=== PATIENT | female | born 1960 | race Caucasian/White ===

== ENCOUNTER 2020-11-25 08:23 | Outpatient (CLI) | payer BC, SELFPAY ==
[2020-11-25 08:49] LABS: Abs Immature Grans 0.04 10^3/uL (0.0-0.06); Absolute Basophil Count 0.03 10^3/uL (0.0-0.2); Absolute Eosinophil Count 0.03 10^3/uL (0.0-0.7); Absolute Lymphocyte Count 1.54 10^3/uL (1.2-3.4); Absolute Monocyte Count 0.35 10^3/uL (0.1-0.8); Absolute Neutrophil Count 3.24 10^3/uL (1.2-6.7); Basophils % 0.6; Eosinophils % 0.6; HCT 41.2 % (36.0-46.0); HGB 13.9 g/dL (11.2-15.7); Immature Grans % 0.8; Lymphocytes % 29.4; MCH 30.2 pg (27.0-33.0); MCHC 33.7 % (32.0-36.0); MCV 89.4 fL (80-95); MPV 10.6 fL (8.0-11.0); Monocytes % 6.7; Neutrophils % 61.9; Nucleated RBC 0 %; Platelet Count 204 10^3/uL (130-400); RBC 4.61 10^6/uL (3.93-5.22); RDW 12.5 % (11.7-14.6); RDW-SD 39.1 fL; WBC 5.23 10^3/uL (4.4-10.8)
[2020-11-25 09:04] LABS: ALT 20 U/L (14-59); AST 16 U/L (15-37); Albumin 3.7 g/dL (3.4-5.0); Alkaline Phosphatase 85 U/L (46-116); Anion Gap 6.9 mmol/L (3-11); BUN 13 mg/dL (7-18); Bilirubin, Total 0.2 mg/dL (0.2-1.0); CO2 31.1 mmol/L (21.0-32.0); CREATININE 0.8 mg/dL (0.55-1.02); Calcium 9.5 mg/dL (8.5-10.1); Chloride 103 mmol/L (98-107); Glucose 108 mg/dL (74-106); Magnesium 2.3 mg/dL (1.8-2.4); Potassium 4.5 mmol/L (3.5-5.1); Sodium 141 mmol/L (136-145); Total Protein 7.7 g/dL (6.4-8.2)
== END 2020-11-25 08:24 | disposition home or self-care (01) ==
LOC: LBO 08:27
PROVIDERS: PCP Registered Nurse; Visit Provider Internal Medicine Medical Oncology
DX: C34.12 Malignant neoplasm of upper lobe, left bronchus or lung (principal)
CPT/HCPCS: 36415; 80053; 83735; 85025

== ENCOUNTER 2020-12-16 08:32 | Outpatient (CLI) | payer BC, SELFPAY ==
[2020-12-16 09:03] LABS: Abs Immature Grans 0.04 10^3/uL (0.0-0.06); Absolute Basophil Count 0.04 10^3/uL (0.0-0.2); Absolute Eosinophil Count 0.04 10^3/uL (0.0-0.7); Absolute Monocyte Count 0.27 10^3/uL (0.1-0.8); Absolute Neutrophil Count 1.49 10^3/uL (1.2-6.7); Basophils % 1.6; Eosinophils % 1.6; HCT 35.6 % (36.0-46.0); HGB 11.9 g/dL (11.2-15.7); Immature Grans % 1.6; Lymphocytes % 24.2; MCH 30.1 pg (27.0-33.0); MCHC 33.4 % (32.0-36.0); MCV 90.1 fL (80-95); MPV 11.1 fL (8.0-11.0); Monocytes % 10.9; Neutrophils % 60.1; Nucleated RBC 0 %; Platelet Count 129 10^3/uL (130-400); RBC 3.95 10^6/uL (3.93-5.22); RDW 13.2 % (11.7-14.6); RDW-SD 39.6 fL; WBC 2.48 10^3/uL (4.4-10.8)
[2020-12-16 09:21] LABS: ALT 24 U/L (14-59); AST 24 U/L (15-37); Albumin 3.5 g/dL (3.4-5.0); Alkaline Phosphatase 74 U/L (46-116); Anion Gap 9.1 mmol/L (3-11); BUN 8 mg/dL (7-18); Bilirubin, Total 0.3 mg/dL (0.2-1.0); CO2 27.9 mmol/L (21.0-32.0); CREATININE 0.8 mg/dL (0.55-1.02); Calcium 9.2 mg/dL (8.5-10.1); Chloride 104 mmol/L (98-107); Glucose 101 mg/dL (74-106); Magnesium 2.2 mg/dL (1.8-2.4); Sodium 141 mmol/L (136-145); Total Protein 7.3 g/dL (6.4-8.2)
== END 2020-12-16 08:33 | disposition home or self-care (01) ==
LOC: LBO 08:33
PROVIDERS: PCP Registered Nurse; Visit Provider Internal Medicine Medical Oncology
DX: C34.12 Malignant neoplasm of upper lobe, left bronchus or lung (principal)
CPT/HCPCS: 36415; 80053; 83735; 85025

== ENCOUNTER 2020-12-23 02:23 | Outpatient (CLI) | payer BC, SELFPAY ==
[2020-12-23 08:23] LABS: Abs Immature Grans 0.02 10^3/uL (0.0-0.06); Absolute Basophil Count 0.06 10^3/uL (0.0-0.2); Absolute Eosinophil Count 0.02 10^3/uL (0.0-0.7); Absolute Lymphocyte Count 0.66 10^3/uL (1.2-3.4); Absolute Monocyte Count 0.34 10^3/uL (0.1-0.8); Absolute Neutrophil Count 3.98 10^3/uL (1.2-6.7); Basophils % 1.2; Eosinophils % 0.4; HCT 37.2 % (36.0-46.0); HGB 12.6 g/dL (11.2-15.7); Immature Grans % 0.4; MCH 30.4 pg (27.0-33.0); MCHC 33.9 % (32.0-36.0); MCV 89.6 fL (80-95); MPV 10.8 fL (8.0-11.0); Monocytes % 6.7; Neutrophils % 78.3; Nucleated RBC 0 %; Platelet Count 191 10^3/uL (130-400); RBC 4.15 10^6/uL (3.93-5.22); RDW 14.6 % (11.7-14.6); RDW-SD 45.2 fL; WBC 5.08 10^3/uL (4.4-10.8)
[2020-12-23 08:31] LABS: ALT 23 U/L (14-59); AST 19 U/L (15-37); Albumin 3.5 g/dL (3.4-5.0); Alkaline Phosphatase 71 U/L (46-116); Anion Gap 9.8 mmol/L (3-11); BUN 10 mg/dL (7-18); Bilirubin, Total 0.4 mg/dL (0.2-1.0); CO2 27.2 mmol/L (21.0-32.0); CREATININE 0.9 mg/dL (0.55-1.02); Calcium 9.1 mg/dL (8.5-10.1); Chloride 104 mmol/L (98-107); Glucose 105 mg/dL (74-106); Magnesium 2.2 mg/dL (1.8-2.4); Sodium 141 mmol/L (136-145); Total Protein 7.3 g/dL (6.4-8.2)
== END 2020-12-23 02:24 | disposition home or self-care (01) ==
LOC: LBO 02:23
PROVIDERS: PCP Registered Nurse; Visit Provider Internal Medicine Medical Oncology
DX: C34.12 Malignant neoplasm of upper lobe, left bronchus or lung (principal)
CPT/HCPCS: 36415; 80053; 83735; 85025

== ENCOUNTER 2021-01-13 03:02 | Outpatient (CLI) | payer BC, SELFPAY ==
[2021-01-13 08:03] LABS: Abs Immature Grans 0.02 10^3/uL (0.0-0.06); Absolute Basophil Count 0.03 10^3/uL (0.0-0.2); Absolute Eosinophil Count 0.04 10^3/uL (0.0-0.7); Absolute Monocyte Count 0.29 10^3/uL (0.1-0.8); Absolute Neutrophil Count 1.65 10^3/uL (1.2-6.7); Basophils % 1.1; Eosinophils % 1.5; HCT 32.7 % (36.0-46.0); Immature Grans % 0.8; Lymphocytes % 22.8; MCH 31.9 pg (27.0-33.0); MCHC 33.6 % (32.0-36.0); MCV 94.8 fL (80-95); MPV 10.4 fL (8.0-11.0); Neutrophils % 62.8; Nucleated RBC 0 %; Platelet Count 165 10^3/uL (130-400); RBC 3.45 10^6/uL (3.93-5.22); RDW 16.9 % (11.7-14.6); RDW-SD 56.3 fL; WBC 2.63 10^3/uL (4.4-10.8)
[2021-01-13 08:15] LABS: ALT 18 U/L (14-59); AST 18 U/L (15-37); Albumin 3.4 g/dL (3.4-5.0); Alkaline Phosphatase 76 U/L (46-116); Anion Gap 8.5 mmol/L (3-11); BUN 8 mg/dL (7-18); Bilirubin, Total 0.2 mg/dL (0.2-1.0); CO2 27.5 mmol/L (21.0-32.0); CREATININE 0.8 mg/dL (0.55-1.02); Calcium 8.9 mg/dL (8.5-10.1); Chloride 106 mmol/L (98-107); Glucose 106 mg/dL (74-106); Magnesium 2.3 mg/dL (1.8-2.4); Sodium 142 mmol/L (136-145); Total Protein 7.1 g/dL (6.4-8.2)
[2021-01-13 08:18] LABS: Diff Comment Diff Reviewed; RBC Morphology Normal
== END 2021-01-13 03:03 | disposition home or self-care (01) ==
LOC: LBO 03:02
PROVIDERS: PCP Registered Nurse; Visit Provider Internal Medicine Medical Oncology
DX: C34.12 Malignant neoplasm of upper lobe, left bronchus or lung (principal)
CPT/HCPCS: 36415; 80053; 83735; 85025

== ENCOUNTER 2021-04-29 13:01 | Outpatient (CLI) | payer BC, SELFPAY ==
--- NOTE | 2021-04-29 | DI.MRI_ITS ---
Exam(s) MR BRAIN WO/W EXAM: MR BRAIN WO/W CLINICAL HISTORY: BRAIN METASTASES C79.31 LUNG CANCER C34.90 TECHNIQUE: Multiplanar multisequence MRI of the brain was performed. CONTRAST MATERIAL: IV Contrast: 17 ML of Dotarem contrast administered. COMPARISON: CT CT HEAD WO CNTRST from 04/26/[address] HEAD WO CNTRST from 04/26/2021 FINDINGS: VENTRICLES AND EXTRA AXIAL SPACES: Normal in size and morphology for the patient's age. HEMORRHAGE: Please see below. CEREBRAL PARENCHYMA: No focus of restricted diffusion to suggest acute infarct. There are 7 intracran ial enhancing lesions present. There is a 0.6 x 0.6 cm ring-enhancing lesion in the inferior aspect of the left temporal lobe. There is a 1.2 x 0.7 cm enhancing lesion at the junction of the right par ietal occipital lobes. This shows associated vasogenic edema. There is a 1.4 by 1.3 cm mass in the left occipital lobe with associated edema. There is a 1.3 x 1.2 cm lesion in the right occipital lob e. There is a 0.8 x 0.7 cm ring [place] lesion adjacent to the atria of the left ventricle. There is a 3 mm ring-enhancing lesion in the left frontal lobe. There is a 2 x 2 cm peripherally enhancing h eterogeneous lesion in the left caudate lobe with associated edema and mild compression of the anteri or horn of the left lateral ventricle. No midline shift is seen. There is evidence of prior hemorrh age in the left caudate and the right occipital lobe lesions. There are several areas of hyperintens e signal seen in the white matter which show no enhancement and likely reflect chronic microvascular ischemic disease. MIDLINE SHIFT: None. BRAINSTEM/CEREBELLUM: Normal. CALVARIUM: Normal. ENHANCEMENT: No suspicious enhancement identified. VISUALIZED PARANASAL SINUSES/MASTOIDS: Clear. [place]: Normal flow void. PITUITARY GLAND: Unremarkable. OTHER FINDINGS: IMPRESSION: Seven intracranial enhancing lesions most consistent with intracranial metastatic disease. DATA REPOSITORY:
[2021-04-29 11:48] LABS: Abs Immature Grans 0.03 10^3/uL (0.0-0.06); Absolute Basophil Count 0.05 10^3/uL (0.0-0.2); Absolute Eosinophil Count 0.04 10^3/uL (0.0-0.7); Absolute Lymphocyte Count 0.91 10^3/uL (1.2-3.4); Absolute Monocyte Count 0.53 10^3/uL (0.1-0.8); Absolute Neutrophil Count 6.38 10^3/uL (1.2-6.7); Basophils % 0.6; Eosinophils % 0.5; HCT 39.7 % (36.0-46.0); Immature Grans % 0.4; Lymphocytes % 11.5; MCH 30.9 pg (27.0-33.0); MCHC 32.7 % (32.0-36.0); MCV 94.3 fL (80-95); MPV 10.9 fL (8.0-11.0); Monocytes % 6.7; Neutrophils % 80.3; Nucleated RBC 0 %; Platelet Count 166 10^3/uL (130-400); RBC 4.21 10^6/uL (3.93-5.22); RDW 11.8 % (11.7-14.6); RDW-SD 40.5 fL; WBC 7.94 10^3/uL (4.4-10.8)
[2021-04-29 12:01] LABS: ALT 17 U/L (14-59); AST 17 U/L (15-37); Albumin 3.6 g/dL (3.4-5.0); Alkaline Phosphatase 82 U/L (46-116); Anion Gap 6.2 mmol/L (3-11); BUN 12 mg/dL (7-18); Bilirubin, Total 0.3 mg/dL (0.2-1.0); CO2 30.8 mmol/L (21.0-32.0); CREATININE 0.9 mg/dL (0.55-1.02); Calcium 9.4 mg/dL (8.5-10.1); Chloride 103 mmol/L (98-107); Glucose 118 mg/dL (74-106); LDH 245 U/L (81-234); Magnesium 2.3 mg/dL (1.8-2.4); Sodium 140 mmol/L (136-145); Total Protein 7.8 g/dL (6.4-8.2)
[2021-04-29] MEDS: Normal Saline Flush 10 ML SYR IVP (12:11)
[2021-04-29] MEDS: Gadoterate meglumine 20 ML VIAL 17 ML IVP (12:12)
== END 2021-04-29 13:21 ==
PROVIDERS: PCP Registered Nurse; Visit Provider Internal Medicine Medical Oncology
DX: C34.90 Malignant neoplasm of unspecified part of unspecified bronchus or lung (principal); C79.31 Secondary malignant neoplasm of brain
CPT/HCPCS: 36415; 70553; 80053; 83615; 83735; 85025

== ENCOUNTER 2021-05-01 02:10 | Outpatient (CLI) | payer BC, SELFPAY ==
--- NOTE | 2021-05-01 | DI.CT_ITS ---
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 COMPARISON: CT CT CHEST W/ CNTRST from 08/30/[address] CHEST W/ CNTRST from 08/30/[address] CHEST/ABD/PEL W from 01/28/[address] CHEST/ABD/PEL W from 01/28/2021 FINDINGS: Tracheobronchial tree: Patent where visualized. Pulmonary parenchyma: No consolidation or dominant measurable mass. Mild centrilobular emphysematous changes are present. There is unchanged scarring in the left upper lobe. No new pulmonary infiltrat es or nodules are seen. The left hilar mass is unchanged compared to the prior examination. Mediastinum and Nidia: No dominant adenopathy or fluid collection. The subcarinal lymph node is unchan ged. Pleura: No effusion or pneumothorax. Heart: The heart is not dilated. No coronary artery calcifications are seen. No significant pericardi al effusion. Aorta: Thoracic aorta non-dilated. Atherosclerosis. Upper abdomen: Stable left adrenal mass. Lymph nodes: No axillary adenopathy. Bones: No suspicious lytic or sclerotic lesions. Soft tissues: Unremarkable. IMPRESSION: No change in appearance of the CT scan of the chest since 01/28/2021. RADIATION DOSE DELIVERED: 661.89mGy.cm Total DLP DATA REPOSITORY: All CT scans at this facility are submitted to the National Radiology Data Registry (NRDR) Dose Index Registry (DIR) with the [employer] (ACR). RADIATION OPTIMIZATION: All CT scans at this facility use at least one of these dose optimization te chniques: automated exposure control; mA and/or kV adjustment per patient size (includes targeted exa ms where dose is matched to clinical indication); or iterative reconstruction.
[2021-05-01] MEDS: Normal Saline - Diluent 50 ML VIAL IV (16:06)
[2021-05-01] MEDS: Omnipaque 350 MG/ML 100 ML BTL IJ (16:07)
[2021-05-01] MEDS: Normal Saline Flush 10 ML SYR IVP (16:08)
--- NOTE | 2021-05-01 16:56 | DI.VRAD_ITS ---
PROCEDURE INFORMATION: Exam: CT Chest With Contrast; Diagnostic Exam date and time: 05/01/2021 3:56 PM Age: 60 years old Clinical indication: Other: Small cell lung CA, c34.90, S/P treatment, surveillance TECHNIQUE: Imaging protocol: Diagnostic computed tomography of the chest with contrast. 3D rendering (Not supervised by radiologist): MIP and/or 3D reconstructed images were created by the technologist. COMPARISON: CT CHEST/ABD/PEL W 01/28/2021 10:04 AM FINDINGS: Lungs: Interval decrease in size of the primary left perihilar mass from 1.9 cm to 1.6 cm best seen on series 2, image 27. Stable scar in the lingula. No new pulmonary nodule. Mild centrilobular emphysema. Posteromedial right upper lobe focus atelectasis. Patchy medial superior left lower lobe and posterior left upper lobe foci of parenchymal airspace opacifications. Query post radiation fibrosis. Pleural spaces: Unremarkable. No pneumothorax. No pleural effusion. Heart: Unremarkable. No cardiomegaly. No pericardial effusion. Aorta: Unremarkable. No aortic aneurysm. Lymph nodes: No new lymphadenopathy. Diaphragm: Small hiatal hernia. Adrenal glands: The left adrenal gland mass has minimally decreased from 2.5 cm to 2.3 cm, best seen on series 2, image 54. Normal right adrenal gland. Bones/joints: No new lytic or blastic osseous lesion. Soft tissues: Unremarkable. IMPRESSION: 1. Interval minimal decrease in size of the residual left hilar mass. 2. Interval decrease in the left adrenal metastasis. 3. No new lymphadenopathy or metastatic disease. 4. Patchy airspace opacities in the left upper lobe and the left lower lobe, query post radiation fibrosis. Dictated and Authenticated by: Whit Engle MD. Ordering:HIPOLITO Henley MD
== END 2021-05-01 02:30 ==
PROVIDERS: PCP Registered Nurse; Visit Provider Internal Medicine Medical Oncology
DX: C34.90 Malignant neoplasm of unspecified part of unspecified bronchus or lung (principal); R91.8 Other nonspecific abnormal finding of lung field
CPT/HCPCS: 71260; J3490

== ENCOUNTER 2021-06-02 02:55 | Outpatient (CLI) | payer BC, SELFPAY ==
[2021-06-02 10:17] LABS: Abs Immature Grans 0.02 10^3/uL (0.0-0.06); Absolute Monocyte Count 0.12 10^3/uL (0.1-0.8); HGB 12.6 g/dL (11.2-15.7); MCH 30.4 pg (27.0-33.0); MCHC 33.2 % (32.0-36.0); MCV 91.8 fL (80-95); Nucleated RBC 0 %; RBC 4.14 10^6/uL (3.93-5.22); RDW 12.7 % (11.7-14.6); RDW-SD 42.5 fL; WBC 2.38 10^3/uL (4.4-10.8)
[2021-06-02 10:28] LABS: ALT 26 U/L (14-59); AST 18 U/L (15-37); Alkaline Phosphatase 83 U/L (46-116); BUN 14 mg/dL (7-18); Bilirubin, Total 0.5 mg/dL (0.2-1.0); CREATININE 0.8 mg/dL (0.55-1.02); Calcium 8.9 mg/dL (8.5-10.1); Chloride 103 mmol/L (98-107); Glucose 264 mg/dL (74-106); Potassium 4.1 mmol/L (3.5-5.1); Sodium 139 mmol/L (136-145); Total Protein 6.7 g/dL (6.4-8.2)
[2021-06-02 10:33] LABS: Absolute Lymphocyte Count 0.38 10^3/uL (1.2-3.4); Absolute Neutrophil Count 1.88 10^3/uL (1.2-6.7); Atypical Lymphocytes % 4; Diff Comment Manual Differential; Platelet Count 66 10^3/uL (130-400); RBC Morphology Normal
== END 2021-06-02 02:56 | disposition home or self-care (01) ==
LOC: LBO 02:55
PROVIDERS: PCP Registered Nurse; Visit Provider Internal Medicine Medical Oncology
DX: C34.90 Malignant neoplasm of unspecified part of unspecified bronchus or lung (principal)
CPT/HCPCS: 36415; 80053; 83735; 85025

== ENCOUNTER 2021-06-17 08:37 | Outpatient (CLI) | payer BC, SELFPAY ==
--- NOTE | 2021-06-17 | DI.MRI_ITS ---
Exam(s) MR BRAIN WO/W EXAM: MR BRAIN WO/W CLINICAL HISTORY: LUNG CA,C34.90,BRAIN METS,C79.31,S/P RT,ASSESS TREATMENT RESPONSE,COMPARE. TECHNIQUE: Multiplanar multisequence MRI of the brain was performed. CONTRAST MATERIAL: IV Contrast: 17 ML of Dotarem contrast administered. COMPARISON: MR MR BRAIN WO/W from 04/29/2021 FINDINGS: VENTRICLES AND EXTRA AXIAL SPACES: Normal in size and morphology for the patient's age. HEMORRHAGE: None. CEREBRAL PARENCHYMA: Marked interval improvement with significant reduction in size of previously not ed metastatic lesions. The previously noted lesions in the left temporal lobe are now barely percept ible. A tiny residual focus is of enhancement is noted at the left temporal mass. A 6 millimeter fo cus of enhancement is seen at the right occipital lesion. There is minimal surrounding edema, signi ficantly improved. The right parietal lesion shows significant decrease in size, now with a 5 millim eter nidus of enhancement without significant edema. Previously noted mass in the left basal ganglia now measures 8 x 4 millimeters and shows mild peripheral enhancement. The left parietal lesion sulma cent to the left lateral ventricle shows a minimal focus of enhancement.. Frontal lesion is no longe r seen. On FLAIR images there are scattered nonenhancing small foci consistent with microvascular ch anges. These appear stable. MIDLINE SHIFT: None. BRAINSTEM/CEREBELLUM: Normal. VISUALIZED PARANASAL SINUSES/MASTOIDS: Clear. IMPRESSION: Significant interval improvement with marked reduction in size of metastatic lesions. No new abnorma lities are seen. DATA REPOSITORY:
[2021-06-17] MEDS: Gadoterate meglumine 20 ML VIAL 17 ML IVP (15:04)
[2021-06-17] MEDS: Normal Saline Flush 10 ML SYR IVP (15:04)
== END 2021-06-17 08:57 ==
PROVIDERS: PCP Registered Nurse; Visit Provider Radiology Radiation Oncology
DX: C34.12 Malignant neoplasm of upper lobe, left bronchus or lung (principal); C79.31 Secondary malignant neoplasm of brain; Z92.3 Personal history of irradiation
CPT/HCPCS: 70553

== ENCOUNTER 2021-09-08 01:27 | Outpatient (CLI) | payer BC, SELFPAY ==
--- NOTE | 2021-09-08 | DI.MRI_ITS ---
Exam(s) MR BRAIN WO/W EXAM: MR BRAIN WO/W CLINICAL HISTORY: BRAIN METS FROM LUNG CA,S/P RADIATION,ASSESS DISEASE PROGRESSION TECHNIQUE: Multiplanar multisequence MRI of the brain was performed. Both noninfused and contrast i nfused sequences were performed. IV Contrast injected was cc Dotarem. COMPARISON: MR MR BRAIN WO/W from 06/17/2021 FINDINGS: CEREBRAL PARENCHYMA: There has been some deterioration. There are no new lesions evident in the cere bellar hemispheres. No new findings in the ileana and midbrain and thalami. In the inferior aspect of the right temporal lobe (just above the tentorium) there is a ring-enhancin g round lesion measuring 1.2 cm by 1.1 cm more prominent than on the study of 06/17/2021. Mild surro unding white matter edema at this level is also more so than previous. There also is a ring-enhancing lesion in the left side of the brain immediately behind the atrium of the left lateral ventricle, not previously present and exhibiting some surrounding edema. This measu res 1.3 x 1.0 cm. A ring-enhancing lesion in the left caudate nucleus immediately adjacent to the le ft lateral ventricle has slightly increased in size and exhibits some increased edema in the surround ing white matter. This ring-enhancing lesion measures 1.1 x 1.1 cm. There are no other additional r ing-enhancing lesions evident. PITUITARY GLAND: No new findings in the pituitary fossa and cavernous sinuses. FLOW VOIDS: The expected flow void are noted. No evidence of obvious aneurysm nor obvious vascular ma lformation. PARANASAL SINUSES: The visualized paranasal sinuses appear unremarkable. ORBITS: No obvious abnormal findings. IMPRESSION: When compared to the prior MRI scan of 06/17/2021 there are increasing metastatic lesions as describe d above. These also exhibit slight increase in perilesional white matter edema. There is, however, no evidence of sulcal obliteration or shift of midline structures. DATA REPOSITORY:
[2021-09-08 11:13] LABS: Abs Immature Grans 0.08 10^3/uL (0.0-0.06); Absolute Basophil Count 0.02 10^3/uL (0.0-0.2); Absolute Lymphocyte Count 0.66 10^3/uL (1.2-3.4); Absolute Monocyte Count 0.23 10^3/uL (0.1-0.8); Absolute Neutrophil Count 9.79 10^3/uL (1.2-6.7); Basophils % 0.2; HCT 42.5 % (36.0-46.0); HGB 14.4 g/dL (11.2-15.7); Immature Grans % 0.7; Lymphocytes % 6.1; MCH 31.6 pg (27.0-33.0); MCHC 33.9 % (32.0-36.0); MCV 93.2 fL (80-95); MPV 11.3 fL (8.0-11.0); Monocytes % 2.1; Neutrophils % 90.9; Nucleated RBC 0 %; Platelet Count 143 10^3/uL (130-400); RBC 4.56 10^6/uL (3.93-5.22); RDW 11.8 % (11.7-14.6); RDW-SD 40.1 fL; WBC 10.78 10^3/uL (4.4-10.8)
[2021-09-08 11:23] LABS: ALT 15 U/L (14-59); AST 10 U/L (15-37); Albumin 3.6 g/dL (3.4-5.0); Alkaline Phosphatase 77 U/L (46-116); Anion Gap 11.2 mmol/L (3-11); BUN 15 mg/dL (7-18); Bilirubin, Total 0.4 mg/dL (0.2-1.0); CO2 24.8 mmol/L (21.0-32.0); CREATININE 0.8 mg/dL (0.55-1.02); Calcium 9.1 mg/dL (8.5-10.1); Chloride 102 mmol/L (98-107); Glucose 253 mg/dL (74-106); Magnesium 2.2 mg/dL (1.8-2.4); Potassium 3.8 mmol/L (3.5-5.1); Sodium 138 mmol/L (136-145); Total Protein 7.3 g/dL (6.4-8.2)
[2021-09-08] MEDS: Gadoterate meglumine 20 ML VIAL 17 ML IVP (11:31)
[2021-09-08] MEDS: Normal Saline Flush 10 ML SYR IVP (11:31)
== END 2021-09-08 01:47 ==
PROVIDERS: Internal Medicine Medical Oncology; PCP Registered Nurse; Visit Provider Radiology Radiation Oncology
DX: C34.12 Malignant neoplasm of upper lobe, left bronchus or lung (principal); C79.31 Secondary malignant neoplasm of brain; Z92.3 Personal history of irradiation
CPT/HCPCS: 70553; 80053; 83735; 85025

== ENCOUNTER 2021-10-09 00:52 | Outpatient (CLI) | payer BC, SELFPAY ==
--- NOTE | 2021-10-09 | DI.MRI_ITS ---
Exam(s) MR BRAIN WO/W EXAM: MR BRAIN WO/W CLINICAL HISTORY: LUNG CANCER C34.90, BRAIN METS C79.31. TECHNIQUE: Multiplanar multisequence MRI was performed. COMPARISON: MR MR BRAIN WO/W from 09/08/2021 FINDINGS: MR examination of the brain was performed according to the usual protocol with additional post contra st T1 axial and coronal imaging and MP rage imaging. Examination is compared with prior examination of September 08. Previous examination showed multiple intracranial presumed metastatic lesions. These have all increased in size, currently visualized lesions include left anterior temporal lobe, r ight posterior temporal lobe, left occipital lobe, and left caudate nucleus. No new focal lesions id entified. Largest lesion is now the left occipital lesion which measures 18 millimeters in diameter, increased in size from about 13 millimeters in greatest diameter on prior examination. No other significant signal abnormality identified in the brain. No evidence of hemorrhage or infarc t. Orbital and temporal bone structures appear intact. There is normal flow void in the [place] vasculature. IMPRESSION: Interval increase in size of multiple metastatic intracranial lesions as described above. DATA REPOSITORY:
[2021-10-09] MEDS: Normal Saline Flush 10 ML SYR IVP (09:39)
[2021-10-09] MEDS: Gadoterate meglumine 20 ML VIAL 17 ML IVP (09:40)
== END 2021-10-09 01:12 ==
PROVIDERS: PCP Registered Nurse; Visit Provider Radiology Radiation Oncology
DX: C34.90 Malignant neoplasm of unspecified part of unspecified bronchus or lung (principal); C79.31 Secondary malignant neoplasm of brain
CPT/HCPCS: 70553

== ENCOUNTER → 2021-12-19 00:50 | Outpatient (CLI) | payer BC, SELFPAY ==
--- NOTE | 2021-12-19 | DI.MRI_ITS ---
Exam(s) MR BRAIN WO/W EXAM: MR BRAIN WO/W CLINICAL HISTORY: SCL CA, BRAIN/SPINAL CORD CA, C79.31, C79.49 S/P BRAIN RT/[place] SRS TECHNIQUE: Multiplanar multisequence MRI of the brain was performed. CONTRAST MATERIAL: IV Contrast: 18 mL of Dotarem contrast administered. COMPARISON: MR MR BRAIN WO/W from 10/09/2021 FINDINGS: VENTRICLES AND EXTRA AXIAL SPACES: Normal in size and morphology for the patient's age. HEMORRHAGE: None. CEREBRAL PARENCHYMA: No focus of restricted diffusion to suggest acute infarct. There are areas of hy perintense signal in the white matter on the FLAIR and T2 weighted images which may represent small v essel ischemic disease and/or post therapeutic change. There again seen 5 intraparenchymal and oj s. The left basal gangliar lesion now measures 1.3 cm AP x 0.8 cm transverse. This compares to 1.5 cm x 1.0 cm. The left occipital lesion measures 1.7 cm AP x 0.8 cm transverse. This compares to 1.8 x 1.0 cm. The right posterior temporal lesion measures 1.4 x 1 cm. This compares to 1.5 x 1.1 cm. There are 2 lesions in the left anterior temporal lobe. The medial lesion now measures 2.4 cm AP co mpared to 5.7 cm on the prior examination. The more lateral left temporal lesion now measures 3 mm c ompared to 1 mm. No other intraparenchymal lesions are seen. MIDLINE SHIFT: None. BRAINSTEM/CEREBELLUM: Normal. CALVARIUM: Normal. ENHANCEMENT: Please see the above section. All of the intraparenchymal masses show some degree of en hancement. VISUALIZED PARANASAL SINUSES/MASTOIDS: Clear. [place]: Normal flow void. PITUITARY GLAND: Unremarkable. OTHER FINDINGS: IMPRESSION: Interval decrease in size of 4 of the 5 intracranial metastatic lesions. Slight interval increase in size of the small lateral left temporal lesion which now measures 3 mm compared to 1 mm on the prior examination. DATA REPOSITORY:
[2021-12-19] MEDS: Normal Saline Flush 10 ML SYR IVP (10:16)
[2021-12-19] MEDS: Gadoterate meglumine 20 ML VIAL 18 ML IVP (10:17)
== END ==
PROVIDERS: PCP Registered Nurse; Visit Provider Radiology Radiation Oncology
DX: C79.31 Secondary malignant neoplasm of brain (principal); C79.49 Secondary malignant neoplasm of other parts of nervous system; Z92.3 Personal history of irradiation
CPT/HCPCS: 70553

== ENCOUNTER → 2022-04-16 01:30 | Outpatient (CLI) | payer BC, SELFPAY ==
--- NOTE | 2022-04-16 | DI.MRI_ITS ---
Exam(s) MR BRAIN WO/W EXAM: MR BRAIN WO/W CLINICAL HISTORY: BRAIN METS C79.31, LUNG CANCER W/ METS, FU TECHNIQUE: Multiplanar multisequence MRI of the brain was performed. CONTRAST MATERIAL: IV Contrast: 15 mL of Dotarem contrast administered. COMPARISON: MR MR BRAIN WO/W from 12/19/2021 FINDINGS: VENTRICLES AND EXTRA AXIAL SPACES: Normal in size and morphology for the patient's age. HEMORRHAGE: The gradient images show signal dropout in each of the metastatic lesions likely reflecti ng prior hemorrhage. CEREBRAL PARENCHYMA: No focus of restricted diffusion to suggest acute infarct. There has been interv al increase in size of all of the intraparenchymal lesions except the lateral enhancing nodule in the left temporal lobe. This nodule is not visualized on the current examination. The metastasis in th e medial aspect of the anterior left temporal lobe now measures 1.2 transverse by 0.9 AP cm. This co mpares to 2.4 mm AP on the prior examination. The right posterior temporal lesion measures 3.2 AP by 1.9 transverse cm on the current examination. This compares to 1.4 x 1 cm on the prior examination. The left basal gangliar lesion now measures 3.6 cm AP x 3.0 cm transverse. This compares to 1.3 x 0.8 cm on the prior examination. The left occipital lesion measures 2.3 AP by 1.5 transverse cm. Th is compares to 1.7 x 0.8 cm. All of these lesions now show significant vasogenic edema. There is ef facement of the sulci in all of these regions. Particularly the left basal gangliar lesion. This le jignesh causes a 7 mm midline shift to the right with a face mint of the anterior horn of the left later al ventricle. The left occipital lesion effaces the occipital horn of the left lateral ventricle. MIDLINE SHIFT: Please see the above dissection under cerebral parenchyma. BRAINSTEM/CEREBELLUM: Normal. CALVARIUM: Normal. ENHANCEMENT: Multiple enhancing metastases as described under cerebral parenchyma. VISUALIZED PARANASAL SINUSES/MASTOIDS: Clear. [place]: Normal flow void. PITUITARY GLAND: By partially empty sella is again seen. OTHER FINDINGS: IMPRESSION: Interval increase in size of all of the intracranial metastases with significant edema present result ing in sulcal effacement and midline shift. The left basal gangliar lesion and its associated edema results in a 7 mm rightward midline shift. There is effacement of the left lateral ventricle. DATA REPOSITORY:
[2022-04-16] MEDS: Normal Saline Flush 10 ML SYR IVP (13:19)
== END ==
PROVIDERS: PCP Registered Nurse; Visit Provider Radiology Radiation Oncology
DX: C79.31 Secondary malignant neoplasm of brain (principal); C34.90 Malignant neoplasm of unspecified part of unspecified bronchus or lung
CPT/HCPCS: 70553

== ENCOUNTER 2022-06-23 14:51 | Inpatient (IN) | payer BC, SELFPAY ==
[2022-06-23] VITALS (18 sets, daily range): BP systolic 78–122; BP diastolic 38–66; PULSE 57–147; RESP 13–33; TEMP 36.1–36.5; O2SAT 95–98
--- NOTE | 2022-06-23 15:15 | DI.CT_ITS ---
Exam(s) CT HEAD WO EXAM: CT HEAD WO CLINICAL HISTORY: KNOWN METS, MENTAL STATUS CHANGE, CONFUSION. TECHNIQUE: Imaging Protocol: Axial computed tomography images with coronal and sagittal reformatted images were created and reviewed COMPARISON: CT CT HEAD WO CNTRST from 04/26/2021 MR MR BRAIN WO/W from 04/16/2022 FINDINGS: Ventricles and Extra axial spaces: Normal in size and morphology for the patient's age. Hemorrhage: None. Cerebral parenchyma: There again seen multiple intracranial metastases. The largest is in the left f rontal periventricular region. These are best appreciated on the MRI of the brain from 04/16/2022. T here is diffuse prominent vasogenic edema associated with the lesions with a 3 mm left right midline shift. There are areas of high density within the metastatic lesions particularly the right temporal in the left frontal mass. This likely reflects intratumoral hemorrhage. Midline shift: None. Brainstem/Cerebellum: Normal. Calvarium: Normal. Visualized Paranasal sinuses/Mastoids: Clear. Soft Tissues: Unremarkable. IMPRESSION: Findings again consistent with multiple on hemorrhagic intracranial metastases. The most recent exam inations have been MRIs. An MRI may be considered for better overall visualization of the metastases and for better direct comparison. RADIATION DOSE DELIVERED: Total DLP DATA REPOSITORY: All CT scans at this facility are submitted to the National Radiology Data Registry (NRDR) Dose Index Registry (DIR) with the [employer] (ACR). RADIATION OPTIMIZATION: All CT scans at this facility use at least one of these dose optimization te chniques: automated exposure control; mA and/or kV adjustment per patient size (includes targeted exa ms where dose is matched to clinical indication); or iterative reconstruction.
--- NOTE | 2022-06-23 15:22 | W.ED.GENAD ---
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, Palliative care patient, DNI (do not intubate), DNR (do not resuscitate) Primary Care Provider: Lenora Anderson ED Provider: Gopi Wagner Home Meds and New Rx's Prescriptions: No Action levetiracetam [Keppra] 500 mg tablet 500 mg PO BID metformin 500 mg tablet extended release 24 hr 500 mg PO BID aspirin [Sami Chewable Aspirin] 81 mg tablet,chewable 81 mg PO DAILY omeprazole 20 mg capsule,delayed release(DR/EC) 20 mg PO DAILY sennosides [senna] 8.6 mg tablet 8.6 mg PO DAILY PRN Medical Decision Making 61-year-old female with a history of diabetes, hypertension, hyperlipidemia, coronary artery disease. She has history of small cell lung carcinoma status postradiation and chemotherapy with known brain metastases. She was recently admitted to [facility] for mental status changes at the end of April for which she was treated with a approximately 3-week tapering dose of dexamethasone which she has not had for at least 2 weeks per her . She has follow-up MRI scheduled for July 16. During the course of her recent admission there was a question of radiation necrosis versus progression of ALINING INSPECTOR disease. Patient was referred to the ER today by [facility] after her noticed that she was confused in the midday at home. She was taking off her close and attempt to wash them and was unable to answer questions. There is been no headache, no vomiting, no fever. She has not had a fall or injury. Patient referred for CT imaging, screening chest x-ray and blood work. Laboratory analysis notes an unremarkable CBC and chemistries, INR 1.1. Ammonia level and TSH are unremarkable. Chest x-ray without acute cardiopulmonary findings. CT scan of the head shows redemonstration of multiple hemorrhagic intracranial metastases. There is evidence of vasogenic edema. This is similar to previous imaging studies. Patient given dexamethasone. She will require admission for observation, likely repeat MRI. We will ask palliative care to be involved as well. Sign Out No HPI General Mode of arrival: ambulatory. Date/Time Provider Initiated Documentation: 06/23/22 14:51. Limitations to Documentation: no limitations. Information obtained by: patient and family. History of Present Illness 61 year old F presents to the emergency department with the chief complaint of Confusion, recurrent, described as mild and similar to prior episodes, and is localized to the head. Patient reports no radiation. Patient started experiencing this hour(s) and it has been intermittent. No relieving factors improve symptom(s), No exacerbating factors reported . Patient notes denies fever/chills, headaches, loss of appetite and nausea/vomiting. Patient did receive the following treatments prior to arrival, none Related Data Home Medications Medication Instructions Recorded Confirmed aspirin 81 mg chewable tablet 81 mg PO DAILY 06/03/22 06/23/22 (Sami Chewable Low Dose Aspirin) levetiracetam 500 mg tablet 500 mg PO BID 06/03/22 06/23/22 (Keppra) metformin 500 mg tablet,extended 500 mg PO BID 06/03/22 06/23/22 release 24 hr omeprazole 20 mg capsule,delayed 20 mg PO DAILY 06/03/22 06/23/22 release sennosides 8.6 mg tablet (senna) 8.6 mg PO DAILY PRN 06/03/22 06/23/22 Allergies Allergy/AdvReac Type Severity Reaction Status Date / Time ciprofloxacin Allergy Verified 06/23/22 15:06 General Stated Complaint: GenMedical AVINASH: 3 Review of Systems Narrative: 6 systems reviewed and otherwise negative 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 (Acute) Goals of care, counseling/discussion (Acute) Encounter for hospice care discussion (Acute) POLST (Physician Orders for Life-Sustaining Treatment) (Acute) DNI (do not intubate) (Acute) DNR (do not resuscitate) (Acute) Palliative care patient (Acute) Medical History CAD (coronary artery disease) Diabetes HLD (hyperlipidemia) HTN (hypertension) Kidney stones Family History Father , aged 90 after 45 yrs of heart disease Heart disease Mother , age 57 from bile duct cancer terrible Bile duct cancer Son Age: 30 Autism Daughter Transgender assigned male at Social History Smoking/Tobacco Use Status: Former Tobacco Use Tobacco: How many years used: 50 Smoking risk assessment performed?: Yes Alcohol Intake: never Drug use: Never Caregiver/Support person: Yes Household members: spouse Housing: house Number of Children: 2 number of grandchildren: 0 Communication Needs: Corrective Lenses Education Level: college Do you need help understanding health information?: Often current occupation: retired human services provider, DD, chronic mental illness Pets and animals: Yes Pets and animals: cat(s) Do you think of yourself as: straight/heterosexual Current gender identity: female What is your relationship status?: How often do you talk on the phone with friends or family?: twice per week Panel score (0-1 are the most socially isolated patients): 1 What type of physical activity do you participate in: walking Duration: < 15 minutes/day Alyssa/Yarsanism: None Special alyssa needs: No Seatbelt use: always Do you feel safe at home: Yes Do you feel safe in your relationship?: Yes Additional Social history: Sylvia lives with her Kem. They've been since 1983. They had two sons; the younger is now transitioning to female. The older has autism and lives in a community fci; the younger has Asperger's and is not in regular contact with Sylvia and her . Sylvia's [id number] is her DPOA. She attends most medical visits, along with Kem. The young couple who care for their older son also helps them with chores, especially manual labor chores they can't do themselves. Sylvia said that couple is trying to figure out financing to buy their house. Exam Narrative Exam Narrative: GEN: awake, alert, oriented to person and place. Pleasant, well groomed, interactive. HEAD: Normocephalic, atraumatic ENT: Mucous membranes moist, oropharynx unremarkable, External ear exam unremarkable EYES: PERRL, EOMI NECK: Full ROM, no KHALIDA, no menigismus CHEST/RESP: Nontender, clear to auscultation bilateral, no wheeze/rhonchi/rales CARDIOVASCULAR: RRR, no murmur, rub sajan. 2+ Rad pulse bilateral ABDOMEN: Soft, nontender, no mass. +Bowel sounds EXT: Full ROM, no edema, no rash Neuro: Grossly normal neurologic exam, conversant, interactive. Psych: Speech fluent, affect is flat Course Vital Signs Vital signs: Vital Signs Temperature 36.5 C 06/23/22 14:58 Pulse 77 06/23/22 14:58 Respiratory Rate 14 06/23/22 14:58 Blood Pressure 119/65 06/23/22 14:58 Pulse Oximetry 98 06/23/22 14:58 Temperature 36.5 C 06/23/22 14:58 Temperature Source Temporal Artery Scan 06/23/22 14:58 Pulse 77 06/23/22 14:58 Respiratory Rate 14 06/23/22 14:58 Blood Pressure 119/65 06/23/22 14:58 Blood Pressure Position Sitting 06/23/22 14:58 Pulse Oximetry 98 06/23/22 14:58 Oxygen Delivery Method Room Air 06/23/22 14:58 Oxygen Flow Rate 0 06/23/22 14:58
[2022-06-23 15:54] LABS: Abs Immature Grans 0.02 10^3/uL (0.0-0.06); Absolute Basophil Count 0.03 10^3/uL (0.0-0.2); Absolute Eosinophil Count 0.05 10^3/uL (0.0-0.7); Absolute Lymphocyte Count 0.81 10^3/uL (1.2-3.4); Absolute Monocyte Count 0.38 10^3/uL (0.1-0.8); Absolute Neutrophil Count 3.51 10^3/uL (1.2-6.7); Basophils % 0.6; HCT 36.6 % (36.0-46.0); HGB 12.1 g/dL (11.2-15.7); Immature Grans % 0.4; Lymphocytes % 16.9; MCH 30.7 pg (27.0-33.0); MCHC 33.1 % (32.0-36.0); MCV 93 fL (80-95); MPV 10.6 fL (8.0-11.0); Monocytes % 7.9; Neutrophils % 73.2; Platelet Count 179 10^3/uL (130-400); RBC 3.94 10^6/uL (3.93-5.22); RDW 12.8 % (11.7-14.6); RDW-SD 43.7 fL
[2022-06-23 16:05] LABS: INR 1.1 (0.9-1.1); Prothrombin Time 10.8 sec (9.3-11.0)
[2022-06-23 16:08] LABS: PTT Activated 25.3 sec (21.0-27.5)
[2022-06-23] MEDS: Dexamethasone 10 MG/ML VIAL IVP (16:09)
[2022-06-23 16:11] LABS: Ammonia < 10 umol/L (11-32)
--- NOTE | 2022-06-23 16:15 | DI.RAD_ITS ---
Exam(s) XR CHEST 2V PA LATERAL EXAM: XR CHEST 2V PA LATERAL CLINICAL HISTORY: confusion TECHNIQUE: 2D digital imaging was performed of the chest. Three images were obtained. PA and later al views were obtained. COMPARISON: CT CT CHEST W from 05/01/2021 FINDINGS: MEDIASTINUM: Normal. HEART: Normal. PULMONARY VASCULATURE: Normal. LUNGS: There is linear scarring or atelectasis in the left mid lung. No focal consolidating infiltra lc are present. PLEURAL SPACE: No pleural effusion or pneumothorax. BONE:Within normal limits for the patient's age. OTHER FINDINGS:Normal. IMPRESSION: No acute pulmonary findings. DATA REPOSITORY: RADIATION DOSE DELIVERED:
[2022-06-23 16:20] LABS: ALT 12 U/L (14-59); AST 16 U/L (15-37); Albumin 3.5 g/dL (3.4-5.0); Alkaline Phosphatase 77 U/L (46-116); Anion Gap 7.1 mmol/L (3-11); BUN 7 mg/dL (7-18); Bilirubin, Total 0.5 mg/dL (0.2-1.0); CO2 28.9 mmol/L (21.0-32.0); CREATININE 0.6 mg/dL (0.55-1.02); Chloride 103 mmol/L (98-107); Glucose 100 mg/dL (74-106); Magnesium 2.1 mg/dL (1.8-2.4); Potassium 3.8 mmol/L (3.5-5.1); Sodium 139 mmol/L (136-145); TSH (W/Ref FT4) 1.32 uIU/mL (0.36-3.74); Total Protein 6.9 g/dL (6.4-8.2); Troponin I < 50 ng/L (<or=60)
[2022-06-23 16:29] LABS: Bilirubin Negative (Negative); Blood Trace-intact (Negative); Clarity Clear (Clear); Glucose Negative (Negative); Ketones Negative (Negative); Leukocyte Esterase Negative (Negative); Nitrite Negative (Negative); Urobilinogen 0.2 EU/dL (Up TO 0.2); pH 6.5 (5-8)
[2022-06-23 16:38] LABS: ETHANOL BLOOD < 3.0 mg/dL (<10)
[2022-06-23 16:38] LABS: Bacteria Few HPF (Negative); C & S Indicated? Yes; Casts Negative LPF (Negative); Crystals Negative HPF (Negative); Epithelial Cells Few HPF (Negative); Mucus Negative (Negative)
[2022-06-23 17:12] LABS: *AMPHETAMINES SCREEN URINE Negative (Negative); *BARBITURATES SCREEN URINE Negative (Negative); *BENZODIAZEPINES SCREEN URINE Negative (Negative); Cannabinoids THC Negative (Negative); Cocaine Screen,Urine Negative (Negative); METHADONE URINE SCREEN Negative (Negative); OPIATES URINE SCREEN Negative (Negative); Tricyclic Antidepressants Negative (Negative)
--- NOTE | 2022-06-23 17:14 | DI.VRAD_ITS ---
PROCEDURE INFORMATION: Exam: CT Head Without Contrast Exam date and time: 06/23/2022 4:43 PM Age: 61 years old Clinical indication: Other: Known mets, mental status change, confusion TECHNIQUE: Imaging protocol: Computed tomography of the head without contrast. Radiation optimization: All CT scans at this facility use at least one of these dose optimization techniques: automated exposure control; mA and/or kV adjustment per patient size (includes targeted exams where dose is matched to clinical indication); or iterative reconstruction. COMPARISON: MR BRAIN WO/W 04/16/2022 12:55 PM FINDINGS: Brain: Redemonstration of multiple intracranial metastases, largest in the left frontal periventricular region measuring approximately 3 cm, better visualized on prior MRI brain performed on 04/16/2022. Punctate foci of hyperdensity within the metastatic lesions most likely reflects intratumoral hemorrhage, most prominently in the right temporal mass and left frontal periventricular mass. Prominent vasogenic edema adjacent to the lesions. 0.3 cm [id number] midline shift. No extra-axial fluid collection. Dunn-white matter differentiation is preserved. Cerebral ventricles: No ventriculomegaly. Paranasal sinuses: Unremarkable. No fluid levels. Mastoid air cells: Unremarkable. Bones/joints: No acute osseus lesion or fracture. Soft tissues: Unremarkable. IMPRESSION: Redemonstration of multiple hemorrhagic intracranial metastases, overall better visualized on prior MRI from 04/16/2022. If clinical necessity for direct comparison for progression of disease, recommend follow-up MRI brain with and without IV contrast. Follow-up at the discretion of neurosurgery. Dictated and Authenticated by: Andrei Voss MD. Ordering:ARSH Nguyễn MD
--- NOTE | 2022-06-23 17:15 | DI.VRAD_ITS ---
PROCEDURE INFORMATION: Exam: XR Chest Exam date and time: 06/23/2022 4:50 PM Age: 61 years old Clinical indication: Confusion TECHNIQUE: Imaging protocol: Radiologic exam of the chest. Views: 2 views. COMPARISON: CT CHEST W 05/01/2021 3:38 PM FINDINGS: Lungs: Linear scarring in the left upper lobe. No focal areas of consolidation. Pleural spaces: Unremarkable. No pleural effusion. No pneumothorax. Heart/Mediastinum: Cardiac and mediastinal silhouettes are unremarkable. Bones/joints: No acute osseus lesion or fracture. IMPRESSION: No acute cardiopulmonary findings. Dictated and Authenticated by: Andrei Voss MD. Ordering:ARSH Nguyễn MD
--- NOTE | 2022-06-23 17:39 | HPE_ITS ---
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 Cont dexamethasone. MRI planned for 07/16 per oncology. Will obtain while here. (2) Goals of care, counseling/discussion: Status: Acute Assessment and plan: Palliative has been involved. Will consult them for further discussion of goals. (3) CAD (coronary artery disease): Assessment and plan: Pt on an aspirin routinely. Hold at this time. No CP. (4) Diabetes: Assessment and plan: Cont metformin. Add SS correction dosing of insulin. Monitor. Expect blood glucose increases d/t steroid administration. (5) HTN (hypertension): Assessment and plan: Monitor. (6) Confusion: Status: Acute Assessment and plan: Secondary to known metastatic lesions to brain. Ammonia level normal. No evidence of infectious process as etiology. History of Present Illness History of Present Illness Chief Complaint: Acute confusional state Narrative: This is a 61 yo female with known small cell lung cancer with mets to the brain, DM2, HTN, HLD, CAD. She has undergone chemotherapy and radiation therapy. Recently admitted to [facility] for mental status changes/confusion at the end of April. She was treated for 3 weeks with a tapering dose of dexamethasone ( course completed). She does have a f/u MRI scheduled for 07/16. She was referred to the ED by [facility] after her noted her to be confused; taking off her clothes and attempting to wash them in the sink and unable to answer questions. She has not noted to have vomitting, fever. In the ED, lab w/u was unremarkable. CT head redemonstrated the known multiple hemorrhagic intracranial metastases with vasogenic edema. Dexamethasone 10mg IV administered. 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 (Acute) Goals of care, counseling/discussion (Acute) Encounter for hospice care discussion (Acute) POLST (Physician Orders for Life-Sustaining Treatment) (Acute) DNI (do not intubate) (Acute) DNR (do not resuscitate) (Acute) Palliative care patient (Acute) Medical History CAD (coronary artery disease) Diabetes HLD (hyperlipidemia) HTN (hypertension) Kidney stones Family History Father , aged 90 after 45 yrs of heart disease Heart disease Mother , age 57 from bile duct cancer terrible Bile duct cancer Son Age: 30 Autism Daughter Transgender assigned male at Social History Smoking/Tobacco Use Status: Former Tobacco Use Tobacco: How many years used: 50 Smoking risk assessment performed?: Yes Alcohol Intake: never Drug use: Never Caregiver/Support person: Yes Household members: spouse Housing: house Number of Children: 2 number of grandchildren: 0 Communication Needs: Corrective Lenses Education Level: college Do you need help understanding health information?: Often current occupation: retired human services provider, DD, chronic mental illness Pets and animals: Yes Pets and animals: cat(s) Do you think of yourself as: straight/heterosexual Current gender identity: female What is your relationship status?: How often do you talk on the phone with friends or family?: twice per week Panel score (0-1 are the most socially isolated patients): 1 What type of physical activity do you participate in: walking Duration: < 15 minutes/day Alyssa/Roman Catholic: None Special alyssa needs: No Seatbelt use: always Do you feel safe at home: Yes Do you feel safe in your relationship?: Yes Additional Social history: Sylvia lives with her Kem. They've been since 1983. They had two sons; the younger is now transitioning to female. The older has autism and lives in a community usp; the younger has Asperger's and is not in regular contact with Sylvia and her . Sylvia's [id number] is her DPOA. She attends most medical visits, along with Kem. The young couple who care for their older son also helps them with chores, especially manual labor chores they can't do themselves. Sylvia said that couple is trying to figure out financing to buy their house. Meds Allergies and Home Medications Allergies Allergy/AdvReac Type Severity Reaction Status Date / Time ciprofloxacin Allergy Verified 06/23/22 15:06 Home Medications Medication Instructions Recorded Confirmed Type aspirin 81 mg chewable tablet 81 mg PO DAILY 06/03/22 06/23/22 History (Sami Chewable Low Dose Aspirin) levetiracetam 500 mg tablet 500 mg PO BID 06/03/22 06/23/22 History (Keppra) metformin 500 mg tablet,extended 500 mg PO BID 06/03/22 06/23/22 History release 24 hr omeprazole 20 mg capsule,delayed 20 mg PO DAILY 06/03/22 06/23/22 History release sennosides 8.6 mg tablet (senna) 8.6 mg PO DAILY PRN 06/03/22 06/23/22 History Exam Narrative Exam Narrative: Pleasant female sitting on edge of bed. Const General: cooperative and no acute distress Nutritional Appearance: overweight Orientation: alert and oriented to person [facility] Head: normocephalic and atraumatic Ears: hearing grossly normal bilaterally Eyes General: appearance normal, both eyes and all related structures Sclera: sclerae normal Pupils: PERRL EOM: No nystagmus Resp Effort & Inspection: normal respiratory effort Auscultation: clear to auscultation bilaterally Cardio Rate: regular rate Rhythm: regular rhythm Heart Sounds: S1 normal and S2 normal GI Inspection: non-distended Palpation: soft and nontender Neuro General: no focal motor deficits Cranial Nerves: facial strength normal and no nystagmus Cognition: abnormal cognition (poor and slow recall of events) Results Labs Result diagrams: 06/23/22 15:48 06/23/22 15:48 Labs: Laboratory Results - last 24 hr 06/23/22 06/23/22 06/23/22 15:48 15:48 15:48 WBC 4.80 RBC 3.94 Hgb 12.1 Hct 36.6 MCV 93 MCH 30.7 MCHC 33.1 RDW 12.8 Plt Count 179 MPV 10.6 Immature Gran % 0.4 Neutrophils % 73.2 Lymphocytes % 16.9 Monocytes % 7.9 Eosinophils % 1.0 Basophils % 0.6 Nucleated RBC % 0.0 Absolute Neutrophils 3.51 Absolute Lymphocytes 0.81 L Absolute Monocytes 0.38 Absolute Eosinophils 0.05 Absolute Basophils 0.03 PT INR APTT Sodium 139 Potassium 3.8 Chloride 103 Carbon Dioxide 28.9 Anion Gap 7.1 BUN 7 Creatinine 0.6 Est GFR (CKD-EPI 2020) 100.80 Glucose 100 Calcium 9.0 Magnesium 2.1 Total Bilirubin 0.5 AST 16 ALT 12 L Alkaline Phosphatase 77 Ammonia < 10 L Troponin I < 50 Total Protein 6.9 Albumin 3.5 TSH 1.32 Urine Color Urine Clarity Urine pH Ur Specific [place] Urine Protein Urine Ketones Urine Blood Urine Nitrite Urine Bilirubin Urine Urobilinogen Ur Leukocyte Esterase Urine RBC Urine WBC Ur Epithelial Cells Urine Crystals Urine Bacteria Urine Casts Urine Mucus Ur Culture Indicated? Urine Glucose Urine Opiates Screen Urine Methadone Screen Ur Barbiturates Screen Ur Tricyclics Screen Ur Amphetamines Screen U Benzodiazepines Scrn Urine Cocaine Screen Ur THC Screen Ethyl Alcohol < 3.0 06/23/22 06/23/22 06/23/22 15:48 15:48 16:22 WBC RBC Hgb Hct MCV MCH MCHC RDW Plt Count MPV Immature Gran % Neutrophils % Lymphocytes % Monocytes % Eosinophils % Basophils % Nucleated RBC % Absolute Neutrophils Absolute Lymphocytes Absolute Monocytes Absolute Eosinophils Absolute Basophils PT 10.8 INR 1.1 APTT 25.3 Sodium Potassium Chloride Carbon Dioxide Anion Gap BUN Creatinine Est GFR (CKD-EPI 2020) Glucose Calcium Magnesium Total Bilirubin AST ALT Alkaline Phosphatase Ammonia Troponin I Total Protein Albumin TSH Urine Color Urine Clarity Urine pH Ur Specific [place] Urine Protein Urine Ketones Urine Blood Urine Nitrite Urine Bilirubin Urine Urobilinogen Ur Leukocyte Esterase Urine RBC Urine WBC Ur Epithelial Cells Urine Crystals Urine Bacteria Urine Casts Urine Mucus Ur Culture Indicated? Urine Glucose Urine Opiates Screen Negative Urine Methadone Screen Negative Ur Barbiturates Screen Negative Ur Tricyclics Screen Negative Ur Amphetamines Screen Negative U Benzodiazepines Scrn Negative Urine Cocaine Screen Negative Ur THC Screen Negative Ethyl Alcohol 06/23/22 16:22 WBC RBC Hgb Hct MCV MCH MCHC RDW Plt Count MPV Immature Gran % Neutrophils % Lymphocytes % Monocytes % Eosinophils % Basophils % Nucleated RBC % Absolute Neutrophils Absolute Lymphocytes Absolute Monocytes Absolute Eosinophils Absolute Basophils PT INR APTT Sodium Potassium Chloride Carbon Dioxide Anion Gap BUN Creatinine Est GFR (CKD-EPI 2020) Glucose Calcium Magnesium Total Bilirubin AST ALT Alkaline Phosphatase Ammonia Troponin I Total Protein Albumin TSH Urine Color Yellow Urine Clarity Clear Urine pH 6.5 Ur Specific [place] 1.010 Urine Protein Negative Urine Ketones Negative Urine Blood Trace-intact H Urine Nitrite Negative Urine Bilirubin Negative Urine Urobilinogen 0.2 Ur Leukocyte Esterase Negative Urine RBC 3-5 H Urine WBC 5-10 Ur Epithelial Cells Few Urine Crystals Negative Urine Bacteria Few Urine Casts Negative Urine Mucus Negative Ur Culture Indicated? Yes Urine Glucose Negative Urine Opiates Screen Urine Methadone Screen Ur Barbiturates Screen Ur Tricyclics Screen Ur Amphetamines Screen U Benzodiazepines Scrn Urine Cocaine Screen Ur THC Screen Ethyl Alcohol Last Vital Signs Temp 36.5 C 06/23/22 14:58 Pulse 77 06/23/22 14:58 Resp 15 06/23/22 16:28 BP 119/65 06/23/22 14:58 Pulse Ox 98 06/23/22 14:58
[2022-06-23 17:40] LABS: Source Nasal/Nares
[2022-06-23 18:24] LABS: COVID-19 PCR Negative (Negative)
[2022-06-23] MEDS: metFORMIN C.R. 500 MG TABCR PO (20:56)
[2022-06-23] MEDS: levETIRAcetam 500 MG TAB PO (20:57)
[2022-06-24 07:44] VITALS: BP 103/57; PULSE 50; RESP 18; TEMP 36.5; O2SAT 96
--- NOTE | 2022-06-24 08:24 | W.INDIABCONS ---
Date of service: 06/24/22 Time of Service: 08:24 Diabetes Inpatient Consult Reason for Visit: consult for diabetes education and management DESCRIPTION/ASSESSMENT: Ms. Cuevas has metastatic lung cancer with mets to the brain. She is on a regular diet. She takes metformin. Blood glucose has been at target. Of note, Ms. Cuevas has lost 10.6 kg since November of this year. She has lost 11% of her body weight in 6 month which is consistent with significant weight loss. INTERVENTION: Will offer high protein, high calorie liquid nutritional supplements as well as encourage her to eat nutrient dense foods. PLAN: Will monitor weight, PO,blood sugars, and tolerance to supplementation. Diabetes education is not appropriate at this time. Will defer for now. Thank you for the consult. Time Spent in Nutritional Counseling and Treatment: 0
[2022-06-24] MEDS: levETIRAcetam 500 MG TAB PO (10:04)
[2022-06-24] MEDS: metFORMIN C.R. 500 MG TABCR PO (10:07)
[2022-06-24] MEDS: Dexamethasone 4 MG TAB 10 MG PO (10:07)
--- NOTE | 2022-06-24 10:30 | INITIAL_ITS ---
- If Service Date Differs Date of service: 06/24/22 Time of Service: 10:30 Care Management Initial Assess REASON FOR HOSPITALIZATION:: Confusional state, brain metasteses PAST MEDICAL HISTORY/PAST SURGICAL HISTORY:: All Active Problems. Confusion (Acute). Obesity (BMI 30.0-34.9) (Acute). History of tobacco use (Acute). quit fall 2020. uses nicotine replacement. Brain tumor, recurrent (Acute). metastatic from Small Cell Lung cancer. Small cell lung cancer, left upper lobe (Acute). 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 Cancer of brain treated with radiation therapy (Chronic). whole brain irradiated 05/22; stereotopic tx in September 2021 and November 2021. 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 Goals of care, counseling/discussion (Acute). Encounter for hospice care discussion (Acute). POLST (Physician Orders for Life-Sustaining Treatment) (Acute). DNI (do not intubate) (Acute). DNR (do not resuscitate) (Acute). Palliative care patient (Acute). Medical History. CAD (coronary artery disease). Diabetes. HLD (hyperlipidemia). HTN (hypertension). Kidney stones PREVIOUS FUNCTIONAL STATUS/SOCIAL/FAMILY SUPPORTS:: Sylvia lives in [place] with her , Kem, who is her primary support person. They have two sons, one who is disabled and lives in a community fci near them, and another who they are not in much contact with. Sylvia is independent with ADL's at baseline. CURRENT FUNCTIONAL STATUS:: Sylvia was sitting up in her chair when CM met with her. She stated that she has seen the MD, and is waiting for an MRI. She reported feeling much better today, and her , who was visiting, confirmed that she is much less confused today. She stated that she feels that she is still independent, and although she has had HH in the past, she does not feel that she needs it currently. She reported that she is looking forward to returning home today. CM will continue to follow. ADVANCE DIRECTIVES:: AD and COLST on file, Kem listed as agent on both. Has patient been provided with info about the portal/API?: Yes Did the patient sign up for the portal?: Yes (active) CODE STATUS:: DNR/DNI INSURANCE COVERAGE / FINANCIAL ISSUES:: BCBS CURRENT HOME/COMMUNITY SERVICES/EQUIPMENT:: No current services or equipment. PRIMARY CARE PHYSICIAN:: Jose Luis Don POTENTIAL DISCHARGE NEEDS:: Evaluations for further needs, follow up appointments. PATIENT/FAMILY EDUCATION NEEDS:: Review discharge instructions and limitations, discussion of self care needs including ask me three and goals of care. ANTICIPATED BARRIERS TO DISCHARGE:: None identified. TRANSPORTATION:: Via private vehicle by . PLAN:: Anticipate Sylvia will return home once medically cleared. Her will drive her home via private vehicle. She will follow up with her PCP and discharge plan of care. CM will continue to follow.
[2022-06-24] MEDS: Normal Saline Flush 10 ML SYR IVP (11:12)
--- NOTE | 2022-06-24 13:40 | DI.MRI_ITS ---
Exam(s) MR BRAIN WO/W EXAM: MR BRAIN WO/W CLINICAL HISTORY: Known brain mets. Acute confusional state TECHNIQUE: Multiplanar multisequence MRI of the brain was performed. CONTRAST MATERIAL: IV Contrast: 15 mL of Dotarem contrast administered. COMPARISON: MR MR BRAIN WO/W from 04/16/2022 FINDINGS: VENTRICLES AND EXTRA AXIAL SPACES: Normal in size and morphology for the patient's age. HEMORRHAGE: Please see below under cerebral parenchyma. CEREBRAL PARENCHYMA: No focus of restricted diffusion to suggest acute infarct. There again seen mult iple ring-enhancing intracranial metastases. They have all shown some degree of increase in size sin ce 04/16/2022. The lesion adjacent to the anterior horn of the left lateral ventricle measures 3.1 x 3.9 cm. This compares to 2.9 x 3.5 cm on the prior examination. All of these show some evidence of intratumoral hemorrhage. There is associated vasogenic edema present. There has been a slight decre ase in the rightward midline shift which now measures 4 mm compared to 7 on the prior examination. MIDLINE SHIFT: None. BRAINSTEM/CEREBELLUM: Normal. CALVARIUM: Normal. ENHANCEMENT: Please see above under cerebral parenchyma. VISUALIZED PARANASAL SINUSES/MASTOIDS: Clear. [place]: Normal flow void. PITUITARY GLAND: Unremarkable. OTHER FINDINGS: IMPRESSION: 1. Increase in size of all of the intracranial metastases since 04/16/2022. 2. Slight decrease in the rightward midline shift since 04/16. It currently measures 4 mm compared t o 7 on the prior examination. DATA REPOSITORY:
--- NOTE | 2022-06-24 14:21 | W.PALLCONSUL ---
Date of service: 06/24/22 Time of Service: 14:21 History of Present Illness History of Present Illness Chief Complaint: Lung Cancer with Brain mets, acute confusional state Narrative: Mrs. Cuevas is a 61-year-old woman (soon-to-be 62-year-old, birthday in 2 days) with history of small cell lung cancer with brain metastasis. She was admitted to [facility] through the emergency department last night after becoming acutely confused over the previous 12 hours, removing her clothing and not responding to her 's instructions. Dr. Palma from palliative care has been following her as an outpatient over the last year. Palliative care service is asked to see her today in consultation Oncological history as well summarized in oncology notes on file. She is status post whole brain radiation in May 2021. She was admitted to [facility] in mid April with acute worsening of confusion and found to have increasing brain edema and microhemorrhages around multiple brain mets. She was started on steroids and responded well. She was sent home with a 6-week steroid taper. As per , completely tapered off the steroids about 3 weeks ago. He noted some speech difficulty starting 3 or 4 days ago and then became acutely severely confused yesterday morning. He called radiation oncology office at [facility] and they recommended that she be brought to the emergency room. Evaluation with head CT showed persistence of brain metastasis and edema but no profound acute changes (large hemorrhage, herniation). Patient was started back on steroids last night. This morning staff, family and patient herself reports that she is greatly improved and pretty much back to previous baseline. He is reported to be alert and oriented and asking to return home. She underwent MRI of her head with and without contrast today and results are still pending at the time of my note. See previous notes with palliative care. In previous discussions, patient told Dr. Palma that she would want to be admitted to hospice when there was no treatment options left. She also has went through the process for Act [employer], as she would like to have this option available to her. Today she says she feels very frustrated and tired as well as angry. She feels she is being poked and prodded, particularly upset about having to have an IV placed. She and her also expressed frustration that we do not know how much longer I have , and we do not know what is going on until we see the MRI . She also feels burdened by having so many doctors appointments and by continuing to be correct and prodded . When asked who in their community is supporting them, she reports we have no one. The disabled son lives nearby and will be visiting tomorrow for Thanksgiving. Their other child lives out of state and is currently estranged with no plans to visit over the holidays. They cannot identify friends or neighbors that are providing support emotional or otherwise. When asked about goals, she cannot think of any. When asked about what activities she has enjoyed over the preceding month, she has enjoyed cooking and being in her kitchen. She is still able to do this prior to her admission. Palliative performance scale: Today 60, likely 70 last week (can do some hobbies, full self-care, normal intake, level of consciousness full/confusion) Review of systems: Denies pain GI symptoms, pruritus, positive depression, positive fatigue. Persistent visual defect as previously noted. 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 Case discussed by phone with Dr. Cortez, her [facility] radiation oncologist. He agrees with resuming steroids. He would like to meet with her in the office in the next week or 2 to discuss option of treatment with a Avastin, which can reduce need to remain on steroids to palliate symptoms from brain edema due to brain metastasis. This information is shared with the patient. Prognosis: Patient and have questions about prognosis. This has been discussed and documented in previous palliative medicine visits. Patient is now over a year out from initial diagnosis of brain mets and has outlived the most likely prognosis that would have been given at that time. She understands that this is not curable. Hard to predict prognosis but likely a month to a few months. Her performance status prior to becoming acutely confused was actually pretty reasonable. Reviewed her goals, reviewed burden of treatment versus possible gains in function and quality of life from additional treatment. She reiterates that she would like to enroll in hospice when she is no longer interested in pursuing treatment. She understands that Avastin is something that would not be considered a hospice type treatment but that steroids are often given to palliate symptoms, especially on hospice. At this point in her illness, her clinical status is most helpful indicator of how she is doing (i.e. imaging did not add that much at this time, although might be required for avastin therapy). Encouraged her and to go by how she is feeling and what she is able to do. As she is now feeling better after being started back on steroids, I anticipate her having at least a few good weeks and urged them to think about what her goals are and pursue them (she mentions cooking and being in her home relaxing). Today she and her do not feel it is time to transition hospice. She would like to meet with Dr. Cortez, Radiation Oncologist in the next week or so and find out more about the Avastin. If she decides not to elect a Avastin treatments (or is not a candidate) , I think she would benefit from electing hospice status. She feels terribly burdened by having to go to many doctors appointments, tests and blood work. Hospice would offer additional support, especially emotional. She does not think it would be helpful for her to talk with new vehicle sales consultant or counselor. Treatment: -Continue on steroids as planned by hospitalist. Discussed with patient and her that she can (and probably should) remain on steroids for the rest of her life, IF Avastin therapy is not elected. -Continue antiseizure medicine. -Patient with some depression as well as fatigue. We will follow-up on this with her next outpatient palliative visit. She is scheduled to follow-up with [facility] palliative medicine in about 6 weeks. We will call and schedule sooner follow-up with Dr. Palma. We are happy to meet with patient sooner if needed. 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 (Acute) Goals of care, counseling/discussion (Acute) Encounter for hospice care discussion (Acute) POLST (Physician Orders for Life-Sustaining Treatment) (Acute) DNI (do not intubate) (Acute) DNR (do not resuscitate) (Acute) Palliative care patient (Acute) Medical History CAD (coronary artery disease) Diabetes HLD (hyperlipidemia) HTN (hypertension) Kidney stones Family History Father , aged 90 after 45 yrs of heart disease Heart disease Mother , age 57 from bile duct cancer terrible Bile duct cancer Son Age: 30 Autism Daughter Transgender assigned male at Social History Smoking/Tobacco Use Status: Former Tobacco Use Tobacco: How many years used: 50 Smoking risk assessment performed?: Yes Alcohol Intake: never Drug use: Never Caregiver/Support person: Yes Household members: spouse Housing: house Number of Children: 2 number of grandchildren: 0 Communication Needs: Corrective Lenses Education Level: college Do you need help understanding health information?: Often current occupation: retired human services provider, DD, chronic mental illness Pets and animals: Yes Pets and animals: cat(s) Do you think of yourself as: straight/heterosexual Current gender identity: female What is your relationship status?: How often do you talk on the phone with friends or family?: twice per week Panel score (0-1 are the most socially isolated patients): 1 What type of physical activity do you participate in: walking Duration: < 15 minutes/day Alyssa/Mosque: None Special alyssa needs: No Seatbelt use: always Do you feel safe at home: Yes Do you feel safe in your relationship?: Yes Additional Social history: Sylvia lives with her Kem. They've been since 1983. They had two sons; the younger is now transitioning to female. The older has autism and lives in a community [place] [facility]; the younger has Asperger's and is not in regular contact with Sylvia and her . Sylvia's [id number] is her DPOA. She attends most medical visits, along with Kem. The young couple who care for their older son also helps them with chores, especially manual labor chores they can't do themselves. Sylvia said that couple is trying to figure out financing to buy their house. Exam Narrative Exam Narrative: Pale and tired appearing woman with somewhat flat affect. No dyspnea. Sitting up on the edge of the bed. Able to walk without difficulty. Results Last Vital Signs Temp 36.5 C 06/24/22 07:44 Pulse 50 L 06/24/22 07:44 Resp 18 06/24/22 07:44 BP 103/57 L 06/24/22 07:44 Pulse Ox 96 06/24/22 07:44 Labs Result diagrams: 06/23/22 15:48 06/23/22 15:48 Labs: Laboratory Results - last 24 hr 06/23/22 06/23/22 06/23/22 15:48 15:48 15:48 WBC 4.80 RBC 3.94 Hgb 12.1 Hct 36.6 MCV 93 MCH 30.7 MCHC 33.1 RDW 12.8 Plt Count 179 MPV 10.6 Immature Gran % 0.4 Neutrophils % 73.2 Lymphocytes % 16.9 Monocytes % 7.9 Eosinophils % 1.0 Basophils % 0.6 Nucleated RBC % 0.0 Absolute Neutrophils 3.51 Absolute Lymphocytes 0.81 L Absolute Monocytes 0.38 Absolute Eosinophils 0.05 Absolute Basophils 0.03 PT INR APTT Sodium 139 Potassium 3.8 Chloride 103 Carbon Dioxide 28.9 Anion Gap 7.1 BUN 7 Creatinine 0.6 Est GFR (CKD-EPI 2020) 100.80 Glucose 100 Calcium 9.0 Magnesium 2.1 Total Bilirubin 0.5 AST 16 ALT 12 L Alkaline Phosphatase 77 Ammonia < 10 L Troponin I < 50 Total Protein 6.9 Albumin 3.5 TSH 1.32 Urine Color Urine Clarity Urine pH Ur Specific [place] Urine Protein Urine Ketones Urine Blood Urine Nitrite Urine Bilirubin Urine Urobilinogen Ur Leukocyte Esterase Urine RBC Urine WBC Ur Epithelial Cells Urine Crystals Urine Bacteria Urine Casts Urine Mucus Ur Culture Indicated? Urine Glucose Urine Opiates Screen Urine Methadone Screen Ur Barbiturates Screen Ur Tricyclics Screen Ur Amphetamines Screen U Benzodiazepines Scrn Urine Cocaine Screen Ur THC Screen Ethyl Alcohol < 3.0 COVID-19 Source SARS-CoV-2 (PCR) 11/22/22 11/22/22 11/22/22 15:48 15:48 16:22 WBC RBC Hgb Hct MCV MCH MCHC RDW Plt Count MPV Immature Gran % Neutrophils % Lymphocytes % Monocytes % Eosinophils % Basophils % Nucleated RBC % Absolute Neutrophils Absolute Lymphocytes Absolute Monocytes Absolute Eosinophils Absolute Basophils PT 10.8 INR 1.1 APTT 25.3 Sodium Potassium Chloride Carbon Dioxide Anion Gap BUN Creatinine Est GFR (CKD-EPI 2020) Glucose Calcium Magnesium Total Bilirubin AST ALT Alkaline Phosphatase Ammonia Troponin I Total Protein Albumin TSH Urine Color Urine Clarity Urine pH Ur Specific [place] Urine Protein Urine Ketones Urine Blood Urine Nitrite Urine Bilirubin Urine Urobilinogen Ur Leukocyte Esterase Urine RBC Urine WBC Ur Epithelial Cells Urine Crystals Urine Bacteria Urine Casts Urine Mucus Ur Culture Indicated? Urine Glucose Urine Opiates Screen Negative Urine Methadone Screen Negative Ur Barbiturates Screen Negative Ur Tricyclics Screen Negative Ur Amphetamines Screen Negative U Benzodiazepines Scrn Negative Urine Cocaine Screen Negative Ur THC Screen Negative Ethyl Alcohol COVID-19 Source SARS-CoV-2 (PCR) 06/23/22 06/23/22 16:22 17:37 WBC RBC Hgb Hct MCV MCH MCHC RDW Plt Count MPV Immature Gran % Neutrophils % Lymphocytes % Monocytes % Eosinophils % Basophils % Nucleated RBC % Absolute Neutrophils Absolute Lymphocytes Absolute Monocytes Absolute Eosinophils Absolute Basophils PT INR APTT Sodium Potassium Chloride Carbon Dioxide Anion Gap BUN Creatinine Est GFR (CKD-EPI 2020) Glucose Calcium Magnesium Total Bilirubin AST ALT Alkaline Phosphatase Ammonia Troponin I Total Protein Albumin TSH Urine Color Yellow Urine Clarity Clear Urine pH 6.5 Ur Specific [place] 1.010 Urine Protein Negative Urine Ketones Negative Urine Blood Trace-intact H Urine Nitrite Negative Urine Bilirubin Negative Urine Urobilinogen 0.2 Ur Leukocyte Esterase Negative Urine RBC 3-5 H Urine WBC 5-10 Ur Epithelial Cells Few Urine Crystals Negative Urine Bacteria Few Urine Casts Negative Urine Mucus Negative Ur Culture Indicated? Yes Urine Glucose Negative Urine Opiates Screen Urine Methadone Screen Ur Barbiturates Screen Ur Tricyclics Screen Ur Amphetamines Screen U Benzodiazepines Scrn Urine Cocaine Screen Ur THC Screen Ethyl Alcohol COVID-19 Source Nasal/Nares SARS-CoV-2 (PCR) Negative
--- NOTE | 2022-06-24 14:54 | W.PM.DS.N ---
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 She has undergone chemotherapy and radiation therapy.? Recently admitted to [facility] for mental status changes/confusion at the end of April. She was treated for 3 weeks with a tapering dose of dexamethasone (course completed). She does have a f/u MRI scheduled for 07/16.? She was referred to the ED by [facility] after her noted her to be confused; taking off her clothes and attempting to wash them in the sink and unable to answer questions.? She has not noted to have vomitting, fever. In the ED, lab w/u was unremarkable.? CT head redemonstrated the known multiple hemorrhagic intracranial metastases with vasogenic edema. Dexamethasone 10mg IV administered. ? The following morning she was more alert, oriented and interactive. Palliative care consulted for discussion of further goals of care. MRI head obtained that showed increased size of all intracranial metastases since 04/16/22. A slight decrease in the rightward midline shift since 04/16 noted; from 7mm to 4mm. Home on dexamethasone 10mg daily; discussion tapering dose with oncology. PCP follow up in 1-2 weeks. Follow up with oncology per their recommendations. Home Meds and New Rx's Prescriptions: New melatonin 3 mg Tablet 3 mg PO HS Qty: 0 0RF dexamethasone 4 mg Tablet 10 mg PO DAILY Qty: 30 0RF Continued levetiracetam [Keppra] 500 mg tablet 500 mg PO BID metformin 500 mg tablet extended release 24 hr 500 mg PO BID aspirin [Sami Chewable Aspirin] 81 mg tablet,chewable 81 mg PO DAILY omeprazole 20 mg capsule,delayed release(DR/EC) 20 mg PO DAILY sennosides [senna] 8.6 mg tablet 8.6 mg PO DAILY PRN Discharge Instructions Activity:: Activity as Tolerated Equipment/Supplies:: No Equipment Needed Diet:: Resume usual diet DS: Summary Time Spent with Patient providing and/or coordinating discharge services: Greater than 30 minutes Status at Discharge Functional status at discharge: independent ambulation Overall status at discharge: patient is progressing back to baseline Mental Status: mental status grossly normal Speech and Movement: speech clear Mood: euthymic mood Affect: blunted Exam Narrative Exam Narrative: Pleasant, conversant. Const General: cooperative and no acute distress Nutritional Appearance: overweight Orientation: alert and oriented to person [facility] Head: normocephalic and atraumatic Ears: hearing grossly normal bilaterally Eyes General: appearance normal, both eyes and all related structures Sclera: sclerae normal Pupils: PERRL EOM: No nystagmus Resp Effort & Inspection: normal respiratory effort Auscultation: clear to auscultation bilaterally Cardio Rate: regular rate Rhythm: regular rhythm Heart Sounds: S1 normal and S2 normal GI Inspection: non-distended Palpation: soft and nontender Neuro General: oriented Patient Orientation: Person, Place and Time and no focal motor deficits Cranial Nerves: facial strength normal and no nystagmus Cognition: abnormal cognition (poor and slow recall of events) Psych Mental Status: mental status grossly normal Speech and Movement: speech clear Mood: euthymic mood Affect: blunted DS: Data Vitals/I&O Vitals and I&O: Vital Signs Temperature 36.5 C 06/24/22 07:44 Temperature Source Tympanic 06/24/22 07:44 Pulse 50 L 06/24/22 07:44 Pulse Rhythm Regular 06/24/22 10:30 Pulse 70 06/23/22 17:40 Respiratory Rate 18 06/24/22 07:44 Respiratory Effort 06/24/22 10:30 Respiratory Depth Normal 06/24/22 10:30 Respiratory Pattern Normal 06/24/22 10:30 Blood Pressure 103/57 L 06/24/22 07:44 Blood Pressure Mean 46 06/23/22 17:34 Blood Pressure Position Sitting 06/23/22 14:58 Pulse Oximetry 96 06/24/22 07:44 Oxygen Delivery Method Room Air 06/24/22 07:44 Oxygen Flow Rate 0 06/24/22 07:44 Pain Level 0 06/24/22 07:44 Intake & Output 06/23/22 06/24/22 06/24/22 23:59 11:59 23:59 Intake Total 240 / 480 240 / 480 Output Total 300 / 300 Balance -60 / 180 240 / 180 Weight 76.6 kg Intake: Oral 240 / 480 240 / 480 Output: Urine 300 / 300 Other: Urine Color Yellow Urine Appearance Clear Clear Comment pT voided in toilet also a little incontinent. pT stated that she voided in toilet. Voiding Methods Toilet Toilet Diaper Incontinent Data Completed and Pending Labs on day of discharge: Labs from last 24 hours 06/23/22 06/23/22 06/23/22 17:37 16:22 16:22 WBC RBC Hgb Hct MCV MCH MCHC RDW Plt Count MPV Immature Gran % Neutrophils % Lymphocytes % Monocytes % Eosinophils % Basophils % Nucleated RBC % Absolute Neutrophils Absolute Lymphocytes Absolute Monocytes Absolute Eosinophils Absolute Basophils PT INR APTT Sodium Potassium Chloride Carbon Dioxide Anion Gap BUN Creatinine Est GFR (CKD-EPI 2020) Glucose Calcium Magnesium Total Bilirubin AST ALT Alkaline Phosphatase Ammonia Troponin I Total Protein Albumin TSH Urine Color Yellow Urine Clarity Clear Urine pH 6.5 Ur Specific [place] 1.010 Urine Protein Negative Urine Ketones Negative Urine Blood Trace-intact H Urine Nitrite Negative Urine Bilirubin Negative Urine Urobilinogen 0.2 Ur Leukocyte Esterase Negative Urine RBC 3-5 H Urine WBC 5-10 Ur Epithelial Cells Few Urine Crystals Negative Urine Bacteria Few Urine Casts Negative Urine Mucus Negative Ur Culture Indicated? Yes Urine Glucose Negative Urine Opiates Screen Negative Urine Methadone Screen Negative Ur Barbiturates Screen Negative Ur Tricyclics Screen Negative Ur Amphetamines Screen Negative U Benzodiazepines Scrn Negative Urine Cocaine Screen Negative Ur THC Screen Negative Ethyl Alcohol COVID-19 Source Nasal/Nares SARS-CoV-2 (PCR) Negative 06/23/22 06/23/22 06/23/22 15:48 15:48 15:48 WBC 4.80 RBC 3.94 Hgb 12.1 Hct 36.6 MCV 93 MCH 30.7 MCHC 33.1 RDW 12.8 Plt Count 179 MPV 10.6 Immature Gran % 0.4 Neutrophils % 73.2 Lymphocytes % 16.9 Monocytes % 7.9 Eosinophils % 1.0 Basophils % 0.6 Nucleated RBC % 0.0 Absolute Neutrophils 3.51 Absolute Lymphocytes 0.81 L Absolute Monocytes 0.38 Absolute Eosinophils 0.05 Absolute Basophils 0.03 PT 10.8 INR 1.1 APTT 25.3 Sodium Potassium Chloride Carbon Dioxide Anion Gap BUN Creatinine Est GFR (CKD-EPI 2020) Glucose Calcium Magnesium Total Bilirubin AST ALT Alkaline Phosphatase Ammonia Troponin I Total Protein Albumin TSH Urine Color Urine Clarity Urine pH Ur Specific [place] Urine Protein Urine Ketones Urine Blood Urine Nitrite Urine Bilirubin Urine Urobilinogen Ur Leukocyte Esterase Urine RBC Urine WBC Ur Epithelial Cells Urine Crystals Urine Bacteria Urine Casts Urine Mucus Ur Culture Indicated? Urine Glucose Urine Opiates Screen Urine Methadone Screen Ur Barbiturates Screen Ur Tricyclics Screen Ur Amphetamines Screen U Benzodiazepines Scrn Urine Cocaine Screen Ur THC Screen Ethyl Alcohol COVID-19 Source SARS-CoV-2 (PCR) 06/23/22 06/23/22 15:48 15:48 WBC RBC Hgb Hct MCV MCH MCHC RDW Plt Count MPV Immature Gran % Neutrophils % Lymphocytes % Monocytes % Eosinophils % Basophils % Nucleated RBC % Absolute Neutrophils Absolute Lymphocytes Absolute Monocytes Absolute Eosinophils Absolute Basophils PT INR APTT Sodium 139 Potassium 3.8 Chloride 103 Carbon Dioxide 28.9 Anion Gap 7.1 BUN 7 Creatinine 0.6 Est GFR (CKD-EPI 2020) 100.80 Glucose 100 Calcium 9.0 Magnesium 2.1 Total Bilirubin 0.5 AST 16 ALT 12 L Alkaline Phosphatase 77 Ammonia < 10 L Troponin I < 50 Total Protein 6.9 Albumin 3.5 TSH 1.32 Urine Color Urine Clarity Urine pH Ur Specific [place] Urine Protein Urine Ketones Urine Blood Urine Nitrite Urine Bilirubin Urine Urobilinogen Ur Leukocyte Esterase Urine RBC Urine WBC Ur Epithelial Cells Urine Crystals Urine Bacteria Urine Casts Urine Mucus Ur Culture Indicated? Urine Glucose Urine Opiates Screen Urine Methadone Screen Ur Barbiturates Screen Ur Tricyclics Screen Ur Amphetamines Screen U Benzodiazepines Scrn Urine Cocaine Screen Ur THC Screen Ethyl Alcohol < 3.0 COVID-19 Source SARS-CoV-2 (PCR) Preliminary micro results at discharge 06/23/22 16:22 Urine Culture - Preliminary Urine - Reflex from Ua Gram Positive [place] PFSH All Active Problems Confusion (Acute) Obesity (BMI 30.0-34.9) (Acute) History of tobacco use (Acute) quit fall 2020 uses nicotine replacement Brain tumor, recurrent (Acute) metastatic from Small Cell Lung cancer Small cell lung cancer, left upper lobe (Acute) 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 Cancer of brain treated with radiation therapy (Chronic) whole brain irradiated 05/22; stereotopic tx in September 2021 and November 2021 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 (Acute) Goals of care, counseling/discussion (Acute) Encounter for hospice care discussion (Acute) POLST (Physician Orders for Life-Sustaining Treatment) (Acute) DNI (do not intubate) (Acute) DNR (do not resuscitate) (Acute) Palliative care patient (Acute) Medical History CAD (coronary artery disease) Diabetes HLD (hyperlipidemia) HTN (hypertension) Kidney stones Family History Father , aged 90 after 45 yrs of heart disease Heart disease Mother , age 57 from bile duct cancer terrible Bile duct cancer Son Age: 30 Autism Daughter Transgender assigned male at Social History Smoking/Tobacco Use Status: Former Tobacco Use Tobacco: How many years used: 50 Smoking risk assessment performed?: Yes Alcohol Intake: never Drug use: Never Caregiver/Support person: Yes Household members: spouse Housing: house Number of Children: 2 number of grandchildren: 0 Communication Needs: Corrective Lenses Education Level: college Do you need help understanding health information?: Often current occupation: retired human services provider, DD, chronic mental illness Pets and animals: Yes Pets and animals: cat(s) Do you think of yourself as: straight/heterosexual Current gender identity: female What is your relationship status?: How often do you talk on the phone with friends or family?: twice per week Panel score (0-1 are the most socially isolated patients): 1 What type of physical activity do you participate in: walking Duration: < 15 minutes/day Alyssa/Oriental Orthodox: None Special alyssa needs: No Seatbelt use: always Do you feel safe at home: Yes Do you feel safe in your relationship?: Yes Additional Social history: Sylvia lives with her Kem. They've been since 1983. They had two sons; the younger is now transitioning to female. The older has autism and lives in a community [facility]; the younger has Asperger's and is not in regular contact with Sylvia and her . Sylvia's [id number] is her DPAYANA. She attends most medical visits, along with Kem. The young couple who care for their older son also helps them with chores, especially manual labor chores they can't do themselves. Sylvia said that couple is trying to figure out financing to buy their house.
--- NOTE | 2022-06-24 16:37 | PDOC.CMDIS ---
- If Service Date Differs Date of service: 06/24/22 Time of Service: 16:38 LACE Index Scoring Tool - Questions: Length of Stay (in days): 1 Acuity (Admit via E.D.?): Yes Comorbidities: Diabetes w/o Complication, Metastatic Solid Tumor E.D. Visits: 1 - Answers: Total Score: 10 Risk of Readmission: High Risk Care Management Discharge Reason for Hospitalization: Confusional state, brain metasteses Discharge Plan: Sylvia returned home today with no new services. Her drove her home via private vehicle. She will follow up with her PCP and discharge plan of care. She is happy to be going home. Patient/Family Education Needs: Review discharge instructions and limitations, discussion of self care needs including ask me three and goals of care.
== END 2022-06-24 16:18 | disposition home or self-care (01) | DRG 55 ==
LOC: ER 18:25 → MS 18:29
PROVIDERS: Admitting Provider Family Medicine; Emergency Provider Emergency Medicine; PCP Registered Nurse; Visit Provider Family Medicine
DX: C79.31 Secondary malignant neoplasm of brain (principal); C34.12 Malignant neoplasm of upper lobe, left bronchus or lung; I25.10 Atherosclerotic heart disease of native coronary artery without angina pectoris; E11.9 Type 2 diabetes mellitus without complications; I10 Essential (primary) hypertension; Z66 Do not resuscitate; E78.5 Hyperlipidemia, unspecified; Z87.891 Personal history of nicotine dependence; Z79.84 Long term (current) use of oral hypoglycemic drugs; R41.0 Disorientation, unspecified; Z92.3 Personal history of irradiation
CPT/HCPCS: 70553; 80053; 80307; 87635; 96374; 99285; 70450; 71046; 80320; 81003; 81015; 82140; 83735; 84443; 84484; 85025; 85610; 85730; 87086; 99222; 99239; J1100; J8540

== ENCOUNTER 2022-07-06 04:08 | Outpatient (CLI) | payer BC, SELFPAY ==
[2022-07-06 09:05] LABS: Absolute Basophil Count 0.02 10^3/uL (0.0-0.2); Absolute Eosinophil Count 0.01 10^3/uL (0.0-0.7); Absolute Lymphocyte Count 1.03 10^3/uL (1.2-3.4); Absolute Neutrophil Count 7.87 10^3/uL (1.2-6.7); Basophils % 0.2; Eosinophils % 0.1; HCT 38.2 % (36.0-46.0); HGB 13.2 g/dL (11.2-15.7); Lymphocytes % 10.8; MCH 30.9 pg (27.0-33.0); MCHC 34.6 % (32.0-36.0); MCV 90 fL (80-95); MPV 10.9 fL (8.0-11.0); Monocytes % 5.2; Neutrophils % 82.7; Platelet Count 199 10^3/uL (130-400); RBC 4.27 10^6/uL (3.93-5.22); RDW 12.7 % (11.7-14.6); RDW-SD 41.7 fL; WBC 9.53 10^3/uL (4.4-10.8)
[2022-07-06 09:22] LABS: ALT 13 U/L (14-59); AST 12 U/L (15-37); Albumin 3.5 g/dL (3.4-5.0); Alkaline Phosphatase 98 U/L (46-116); Anion Gap 10.9 mmol/L (3-11); BUN 17 mg/dL (7-18); Bilirubin, Total 0.7 mg/dL (0.2-1.0); CO2 25.1 mmol/L (21.0-32.0); CREATININE 0.7 mg/dL (0.55-1.02); Calcium 9.3 mg/dL (8.5-10.1); Chloride 99 mmol/L (98-107); Estimated GFR 96.52 (mL/min/1.73m2); Glucose 164 mg/dL (74-106); Potassium 3.4 mmol/L (3.5-5.1); Sodium 135 mmol/L (136-145); Total Protein 6.9 g/dL (6.4-8.2)
== END 2022-07-06 04:09 | disposition home or self-care (01) ==
LOC: LBO 04:09
PROVIDERS: PCP Registered Nurse; Visit Provider Internal Medicine Medical Oncology
DX: C34.90 Malignant neoplasm of unspecified part of unspecified bronchus or lung (principal); C79.31 Secondary malignant neoplasm of brain; I67.89 Other cerebrovascular disease
CPT/HCPCS: 36415; 80053; 81003; 83735; 85025

== ENCOUNTER 2022-07-20 02:45 | Outpatient (RCR) | payer BC, SELFPAY ==
[2022-07-20] MEDS: Normal Saline Flush 10 ML SYR IVP (08:10)
[2022-07-20 08:29] LABS: Abs Immature Grans 0.13 10^3/uL (0.0-0.06); Absolute Basophil Count 0.01 10^3/uL (0.0-0.2); Absolute Eosinophil Count 0.01 10^3/uL (0.0-0.7); Absolute Lymphocyte Count 0.52 10^3/uL (1.2-3.4); Absolute Monocyte Count 0.23 10^3/uL (0.1-0.8); Absolute Neutrophil Count 8.97 10^3/uL (1.2-6.7); Basophils % 0.1; Eosinophils % 0.1; HCT 36.5 % (36.0-46.0); HGB 12.8 g/dL (11.2-15.7); Immature Grans % 1.3; Lymphocytes % 5.3; MCH 31.3 pg (27.0-33.0); MCHC 35.1 % (32.0-36.0); MCV 89 fL (80-95); MPV 11.2 fL (8.0-11.0); Monocytes % 2.3; Neutrophils % 90.9; Platelet Count 168 10^3/uL (130-400); RBC 4.09 10^6/uL (3.93-5.22); RDW 12.8 % (11.7-14.6); RDW-SD 42.2 fL; WBC 9.87 10^3/uL (4.4-10.8)
[2022-07-20 08:33] LABS: Bilirubin Negative (Negative); Blood Negative (Negative); Clarity Clear (Clear); Glucose 500 mg/dL (Negative); Ketones Negative (Negative); Leukocyte Esterase Trace (Negative); Nitrite Negative (Negative); Specific Gravity 1.015 (1.005-1.025); Urobilinogen 0.2 EU/dL (Up TO 0.2)
[2022-07-20 08:46] LABS: ALT 30 U/L (14-59); AST 21 U/L (15-37); Albumin 2.9 g/dL (3.4-5.0); Alkaline Phosphatase 83 U/L (46-116); Anion Gap 8.7 mmol/L (3-11); BUN 14 mg/dL (7-18); Bilirubin, Total 0.6 mg/dL (0.2-1.0); CO2 27.3 mmol/L (21.0-32.0); CREATININE 0.7 mg/dL (0.55-1.02); Calcium 8.7 mg/dL (8.5-10.1); Chloride 97 mmol/L (98-107); Estimated GFR 96.52 (mL/min/1.73m2); Glucose 313 mg/dL (74-106); Magnesium 1.7 mg/dL (1.8-2.4); Potassium 3.6 mmol/L (3.5-5.1); Sodium 133 mmol/L (136-145); Total Protein 6.2 g/dL (6.4-8.2)
== END 2022-08-01 23:59 | disposition home or self-care (01) ==
LOC: INF 02:45
PROVIDERS: PCP Registered Nurse; Visit Provider Internal Medicine Medical Oncology
DX: C34.90 Malignant neoplasm of unspecified part of unspecified bronchus or lung (principal); C79.31 Secondary malignant neoplasm of brain; I67.89 Other cerebrovascular disease; Y84.2 Radiological procedure and radiotherapy as the cause of abnormal reaction of the patient, or of later complication, without mention of misadventure at the time of the procedure; Z45.2 Encounter for adjustment and management of vascular access device
CPT/HCPCS: 36591; 80053; 81003; 83735; 85025